=== PATIENT | female | born 1960 | race African-American/Black ===

== ENCOUNTER 2016-12-15 17:23 | Emergency (ER) | payer OTHER ==
[~2016-12-15] VITALS: Ht 162.6 cm; Wt 85.0 kg
[2016-12-15 17:26] VITALS: Ht 162.6 cm; Wt 85.0 kg
--- NOTE | 2016-12-15 17:28 | ERA ---
ER Documentation Chief Complaint Date/Time DATE: 12/15/16 TIME: 17:28 Chief Complaint Cough HPI The patient is a 56-year-old female, presenting to the ER because of cough, chills, general body pain for 1 day. She denies neck pain, chest pain, dyspnea , abdominal pain, vomiting, dysuria, diarrhea. She does not smoke nor drink Past medical history: Asthma, sjogren syndrome, trigeminal neuralgia Past surgical history: Hysterectomy ROS All systems reviewed and are negative except as per history of present illness. Medications Home Meds Active Scripts Promethazine/Phenyleph/Codeine (Khxlgvrbdaqv-IT-Euvjxaq Syrup) 118 Ml Syrup, 10 ML PO Q6 for COUGH, #120 Prov:ABHI JUAREZ MD 12/15/16 Ibuprofen* (Motrin*) 600 Mg Tab, 600 MG PO Q6H Y for PAIN AND OR ELEVATED TEMP, #20 TAB Prov:ABHI JUAREZ MD 12/15/16 Oseltamivir Phosphate* (Tamiflu*) 75 Mg Capsule, 75 MG PO BID for 5 Days, CAP Prov:ABHI JUAREZ MD 12/15/16 Azithromycin* (Zithromax*) 250 Mg Tablet, 250 MG PO .ZPACK DIRECTED, #6 TAB TAKE 500 MG (2 TABS) THE FIRST DAY THEN 250 MG (1 TAB) DAYS 2-5 Prov:ABHI JUAREZ MD 12/15/16 Physical Exam Vitals Vital Signs Date Time Temp Pulse Resp B/P Pulse Ox O2 Delivery O2 Flow Rate FiO2 12/15/16 19:09 101.2 101 18 143/73 96 Room Air 12/15/16 18:52 87 22 96 21 12/15/16 17:26 101.6 104 18 172/86 99 Physical Exam Const: No acute distress. Head: Atraumatic. Eyes: Normal Conjunctiva. ENT: Normal External Ears, Nose and Mouth. Neck: Full range of motion. No meningismus. Resp: Mild bilateral expiratory wheezes Cardio: Regular rate and rhythm, no murmurs. Abd: Soft, non distended, normal bowel sounds, non tender. Skin: No petechiae or rashes. Back: No midline or flank tenderness. Ext: No cyanosis, or edema. Neur: Awake and alert. No focal deficit Psych: Normal Mood and Affect. Result Diagram: 12/15/16 1800 12/15/16 1800 Results 24 hrs Laboratory Tests Test 12/15/16 18:00 12/15/16 19:20 White Blood Count 8.810^3/ul Red Blood Count 3.9210^6/ul Hemoglobin 11.8g/dl Hematocrit 36.8% Mean Corpuscular Volume 93.9fl Mean Corpuscular Hemoglobin 30.1pg Mean Corpuscular Hemoglobin Concent 32.1g/dl Red Cell Distribution Width 12.8% Platelet Count 57978^3/UL Mean Platelet Volume 10.8fl Neutrophils % 74.2% Lymphocytes % 16.7% Monocytes % 5.3% Eosinophils % 3.2% Basophils % 0.1% Nucleated Red Blood Cells % 0.0/100WBC Neutrophils # 6.510^3/ul Lymphocytes # 1.510^3/ul Monocytes # 0.510^3/ul Eosinophils # 0.310^3/ul Basophils # 0.010^3/ul Nucleated Red Blood Cells # 0.010^3/ul Prothrombin Time 13.8Sec Prothrombin Time Ratio 1.1 INR International Normalized Ratio 1.06 Activated Partial Thromboplast Time 28.8Sec Sodium Level 140mmol/L Potassium Level 4.1mmol/L Chloride Level 104mmol/L Carbon Dioxide Level 28mmol/L Anion Gap 12 Blood Urea Nitrogen 9mg/dl Creatinine 0.91mg/dl Glucose Level 126mg/dl Lactic Acid Level 1.1mmol/L Calcium Level 8.8mg/dl Total Bilirubin 0.4mg/dl Direct Bilirubin 0.00mg/dl Indirect Bilirubin 0.4mg/dl Aspartate Amino Transf (AST/SGOT) 25IU/L Alanine Aminotransferase (ALT/SGPT) 23IU/L Alkaline Phosphatase 94IU/L Troponin I < 0.012ng/ml Total Protein 7.7g/dl Albumin 4.0g/dl Globulin 3.70g/dl Albumin/Globulin Ratio 1.08 Bedside Urine pH (LAB) 7.0 Bedside Urine Protein (LAB) Trace Bedside Urine Glucose (UA) Negative Bedside Urine Ketones (LAB) Negative Bedside Urine Blood Negative Bedside Urine Nitrite (LAB) Negative Bedside Urine Leukocyte Esterase (L Trace Current Medications Medications (Trade) Dose Ordered Sig/Brianna Route PRN Reason Start Time Stop Time Status Last Admin Dose Admin Acetaminophen (Tylenol Tab) 650 mg ONCE ONCE PO 12/15/16 18:00 12/15/16 18:01 DC 12/15/16 18:13 Levalbuterol (Xopenex Neb) 1.25 mg ONCE ONCE HHN 12/15/16 18:00 12/15/16 18:01 DC 12/15/16 18:51 Ipratropium [place] (Atrovent 0.02% (Neb)) 0.5 mg ONCE ONCE HHN 12/15/16 18:00 12/15/16 18:01 DC 12/15/16 18:51 Procedures/[place] [address] Radiology Main Line: [phone] DIAGNOSTIC IMAGING REPORT Patient: LIO GARNICA : 1960 Age: 56 Sex: F MR #: [id number] DOS: 12/15/16 1732 Ordering MD: ABHI JUAREZ MD Location: E/R Room/Bed: PROCEDURE: XR Chest CLINICAL INDICATION: Fever. Shortness of breath. TECHNIQUE: Single frontal view. COMPARISON: 06/29/2014. FINDINGS: The lungs are clear. The heart size is prominent. There is no pleural effusion. There is no pneumothorax. Surgical clips are present in the left axilla. There is gaseous distension of the stomach. IMPRESSION: 1. No acute cardiopulmonary process. 2. Mild cardiomegaly. 3. Gaseous distension of the stomach. RPTAT: VV .Ian Child MD, MD Date Time Electronically viewed and signed by .Ian Child MD, on 12/15/2016 18:53 .A/ CC: ABHI JUAREZ MD EKG: Read by emergency physician Rate/Rhythm: Normal Sinus Rhythm 99 beats/min QRS, ST, T-waves: No ST elevation, no T inversion Impression: Normal EKG MEDICAL MAKING DECISION: The patient is a 56-year-old female, presenting with acute febrile illness of unclear etiology. The differential diagnoses considered include but are not limited to influenza, pneumonia, cystitis, sepsis. She was treated with Xopenex 1.25 mg and Atrovent 0.5 mg for wheezing and acetaminophen for fever with good response. Departure Diagnosis: Primary Impression: Acute febrile illness Additional Impressions: Anemia Thrombocytopenia Condition: Good Comments She was discharged with Tamiflu, Zithromax, Motrin, Phenergan with codeine I discussed the findings with the patient. I advised the patient to follow-up with the primary physician in about 1-2 days, sooner if needed and return if any concern. The patient's blood pressure was elevated (>120/80) but appears stable without evidence of hypertension emergency or urgency. The patient was counseled about the risks of hypertension and urged to pursue outpatient monitoring and therapy within a week with their primary care physician. ABHI JUAREZ MD Dec 15, 2016 17:28
[2016-12-15] MEDS ORDERED: LEVALBUTEROL (NEB) 1.25 MG/0.5 ML AMP HHN ONE (18:00)
[2016-12-15] MEDS ORDERED: IPRATROPIUM (NEB) 0.5 MG/2.5 ML AMP HHN ONE (18:00)
[2016-12-15] MEDS ORDERED: ACETAMINOPHEN 325 MG TAB PO ONE (18:00)
[2016-12-15 18:20] LABS: ADD SCAN DIFF NO
[2016-12-15 18:22] LABS: BASOPHILS % 0.1 % (0.0-2.0); EOSINOPHILS # 0.3 10^3/ul (0.0-0.5); EOSINOPHILS % 3.2 % (0.0-7.0); HEMATOCRIT 36.8 % (37.0-47.0); HEMOGLOBIN 11.8 g/dl (12.0-16.0); LYMPHOCYTES # 1.5 10^3/ul (0.8-2.9); LYMPHOCYTES % 16.7 % (15.0-51.0); MEAN CORPUSCULAR HEMOGLOBIN 30.1 pg (29.0-33.0); MEAN CORPUSCULAR HGB CONC 32.1 g/dl (32.0-37.0); MEAN CORPUSCULAR VOLUME 93.9 fl (82.0-101.0); MEAN PLATELET VOLUME 10.8 fl (7.4-10.4); MONOCYTE # 0.5 10^3/ul (0.3-0.9); MONOCYTES % 5.3 % (0.0-11.0); NEUTROPHIL # 6.5 10^3/ul (1.6-7.5); NEUTROPHILS % 74.2 % (39.0-77.0); PLATELET COUNT 138 10^3/UL (140-415); RED BLOOD COUNT 3.92 10^6/ul (4.20-5.40); RED CELL DISTRIBUTION WIDTH 12.8 % (11.5-14.5); WHITE BLOOD COUNT 8.8 10^3/ul (4.8-10.8)
[2016-12-15 18:34] LABS: INR 1.06; PROTIME 13.8 Sec (12.2-14.2); PT RATIO 1.1
[2016-12-15 18:35] LABS: PARTIAL THROMBOPLASTIN TIME 28.8 Sec (25.0-35.0)
[2016-12-15 18:38] LABS: CHLORIDE 104 mmol/L (97-110); POTASSIUM 4.1 mmol/L (3.5-5.1); SODIUM 140 mmol/L (135-144)
[2016-12-15 18:40] LABS: ANION GAP 12 (8-16); ASPARTATE AMINO TRANSFERASE 25 IU/L (15-46); BILIRUBIN,INDIRECT 0.4 mg/dl (0-1.1); BILIRUBIN,TOTAL 0.4 mg/dl (0.2-1.3); CARBON DIOXIDE 28 mmol/L (21-31); CREATININE 0.91 mg/dl (0.44-1.00)
[2016-12-15 18:41] LABS: ALANINE AMINOTRANSFERASE 23 IU/L (13-69); ALBUMIN/GLOBULIN RATIO 1.08; ALKALINE PHOSPHATASE 94 IU/L (42-121); BLOOD UREA NITROGEN 9 mg/dl (7-20); CALCIUM 8.8 mg/dl (8.4-10.2); GLUCOSE 126 mg/dl (70-220); TOTAL PROTEIN 7.7 g/dl (6.1-8.1)
--- NOTE | 2016-12-15 18:53 | RADRPT ---
PROCEDURE: XR Chest CLINICAL INDICATION: Fever. Shortness of breath. TECHNIQUE: Single frontal view. COMPARISON: 06/29/2014. FINDINGS: The lungs are clear. The heart size is prominent. There is no pleural effusion. There is no pneum othorax. Surgical clips are present in the left axilla. There is gaseous distension of the stomac h. IMPRESSION: 1. No acute cardiopulmonary process. 2. Mild cardiomegaly. 3. Gaseous distension of the stomach. RPTAT: VV .Ian Child MD, MD Date Time Electronically viewed and signed by .Ian Child MD, on 12/15/2016 18:53 .A/
[2016-12-15 18:54] LABS: TROPONIN-I < 0.012 ng/ml (0.00-0.12)
[2016-12-15 19:09] VITALS: BP 143/73; PULSE 101; RESP 18; TEMP 101.2
[2016-12-15 19:21] LABS: URINE BLOOD (Dip) POC Negative (NEGATIVE)
[2016-12-15] MEDS ORDERED: AZIT250T94 PO (19:27)
[2016-12-15] MEDS ORDERED: OSLT75C PO (19:27)
[2016-12-15] MEDS ORDERED: IBUP-1542 PO (19:28)
[2016-12-15] MEDS ORDERED: PROM118S PO (19:31)
== END 2016-12-15 19:47 | disposition home or self-care (01) ==
LOC: E/R 17:23
DX: R50.9 Fever, unspecified (principal); D64.9 Anemia, unspecified; D69.6 Thrombocytopenia, unspecified; R06.02 Shortness of breath; J45.909 Unspecified asthma, uncomplicated
CPT/HCPCS: 36415; 71010; 80053; 81003; 83605; 84484; 85025; 85610; 85730; 87040; 87400; 93005; 94664